=== PATIENT | male | born 1995 | race Caucasian/White ===

== ENCOUNTER 2017-11-18 11:52 | Emergency (ER) | payer OTHER ==
[~2017-11-18] VITALS: Ht 177.8 cm; Wt 69.4 kg
[~2017-11-18 11:52] MED LIST: COL100 PO; NOR10T PO
[2017-11-18 12:05] VITALS: Ht 177.8 cm; Wt 69.4 kg
[2017-11-18 14:24] VITALS: BP 117/57
== END 2017-11-18 14:24 | disposition home or self-care (01) ==
LOC: ED 11:52
DX: S60.511A Abrasion of right hand, initial encounter (principal); X58.XXXA Exposure to other specified factors, initial encounter; Y93.89 Activity, other specified; Y92.89 Other specified places as the place of occurrence of the external cause; Y99.8 Other external cause status

== ENCOUNTER 2019-01-11 13:16 | Emergency (ER) | payer SELFPAY ==
[~2019-01-11] VITALS: Ht 175.3 cm; Wt 66.8 kg
[2019-01-11 13:21] VITALS: Ht 175.3 cm; Wt 66.8 kg
[2019-01-11 13:57] LABS: BASOPHIL % 0.5 % (0-2); PLATELET COUNT 219 x10^3mcL (130-400); RED CELL DISTRIBUTION WIDTH 13.2 % (11.5-14.5)
[2019-01-11 14:15] LABS: microscopic required? NO
[2019-01-11 14:19] LABS: CALCIUM 9.6 mg/dL (8.5-10.1); CARBON DIOXIDE 26.1 mmol/L (21-32); CHLORIDE SERUM 103 mmol/L (98-107); CREATININE SERUM 0.9 mg/dL (0.7-1.3); GFR1 > 60 mL/min; GLUCOSE SERUM 95 mg/dL (74-106); POTASSIUM SERUM 3.7 mmol/L (3.5-5.1); SODIUM SERUM 143 mmol/L (136-145)
[2019-01-11 14:22] LABS: ALBUMIN 4.6 g/dL (3.4-5.0); ALKALINE PHOSPHATASE 89 U/L (46-116); ALT/SGPT 17 U/L (16-63); AST/SGOT 9 U/L (15-37); BILIRUBIN TOTAL 0.6 mg/dL (0.20-1.00); HDL CHOLESTEROL 42 mg/dL (40-60); LIPASE 90 IU/L (73-393); TRIGLYCERIDES 57 mg/dL (<150)
[2019-01-11 14:25] LABS: CHOLESTEROL 104 mg/dL (<200); CHOLESTEROL/HDL RATIO 2.5; TOTAL PROTEIN, SERUM 8.5 g/dL (6.4-8.2)
[2019-01-11 14:25] LABS: urine erythrocyte NEGATIVE (NEGATIVE)
[2019-01-11 14:33] LABS: AMPHETAMINE QUAL UR NONE DETECTED (See below)
[2019-01-11 14:53] LABS: FREE T4 1.21 ng/dL (0.76-1.46); FREE THYROXINE INDEX 3.2 ug/dL (1.4-4.5); T4(THYROXINE) 8.3 ug/dL (4.7-13.3)
[2019-01-11 17:36] VITALS: BP 96/58
[2019-01-11 17:43] LABS: T3 TOTAL 1.14 ng/mL
== END 2019-01-11 18:19 | disposition home or self-care (01) ==
LOC: ED 13:16
PROVIDERS: Specialist
DX: R07.89 Other chest pain (principal); K40.90 Unilateral inguinal hernia, without obstruction or gangrene, not specified as recurrent; F41.9 Anxiety disorder, unspecified; F12.90 Cannabis use, unspecified, uncomplicated; Z87.891 Personal history of nicotine dependence; Z90.89 Acquired absence of other organs
CPT/HCPCS: 83880; 84439; J1885; J2060; J7030; Q0092

== ENCOUNTER 2019-02-10 09:04 | Emergency (ER) | payer MEDICAID ==
[~2019-02-10] VITALS: Ht 180.3 cm; Wt 68.0 kg
[2019-02-10 09:32] VITALS: BP 123/86; Ht 180.3 cm; Wt 68.0 kg
== END 2019-02-10 10:52 | disposition home or self-care (01) ==
LOC: ED 09:04
DX: F41.9 Anxiety disorder, unspecified (principal); Z90.89 Acquired absence of other organs

== ENCOUNTER 2019-04-14 00:37 | Emergency (ER) | payer SELFPAY ==
[~2019-04-14] VITALS: Ht 180.3 cm; Wt 75.3 kg
[2019-04-14 00:46] VITALS: Ht 180.3 cm; Wt 75.3 kg
[2019-04-14 03:13] LABS: CALCIUM 8.9 mg/dL (8.5-10.1); CARBON DIOXIDE 29.6 mmol/L (21-32); CHLORIDE SERUM 106 mmol/L (98-107); CREATININE SERUM 0.7 mg/dL (0.7-1.3); GFR1 > 60 mL/min; GLUCOSE SERUM 96 mg/dL (74-106); POTASSIUM SERUM 3.9 mmol/L (3.5-5.1); SODIUM SERUM 142 mmol/L (136-145)
[2019-04-14 03:17] LABS: ALBUMIN 4.1 g/dL (3.4-5.0); ALKALINE PHOSPHATASE 78 U/L (46-116); ALT/SGPT 19 U/L (16-63); AST/SGOT 10 U/L (15-37); BILIRUBIN TOTAL 0.58 mg/dL (0.20-1.00); TOTAL PROTEIN, SERUM 7.5 g/dL (6.4-8.2)
[2019-04-14 03:19] LABS: BASOPHIL % 0.5 % (0-2); PLATELET COUNT 197 x10^3mcL (130-400); RED CELL DISTRIBUTION WIDTH 13.6 % (11.5-14.5)
[2019-04-14 04:42] VITALS: BP 128/79
== END 2019-04-14 04:42 | disposition home or self-care (01) ==
LOC: ED 00:37
PROVIDERS: Emergency Medicine
DX: F41.9 Anxiety disorder, unspecified (principal); R51 Headache; Z90.89 Acquired absence of other organs
CPT/HCPCS: J2405; J7030

== ENCOUNTER 2020-02-14 21:43 | Emergency (ER) | payer SELFPAY ==
[~2020-02-14] VITALS: Ht 177.8 cm; Wt 71.7 kg
[2020-02-14 22:07] VITALS: Ht 177.8 cm; Wt 71.7 kg
[2020-02-14 23:17] LABS: BASOPHIL % 0.3 % (0-2); PLATELET COUNT 182 x10^3mcL (130-400); RED CELL DISTRIBUTION WIDTH 13.1 % (11.5-14.5)
[2020-02-14 23:21] LABS: CALCIUM 8.9 mg/dL (8.5-10.1); CARBON DIOXIDE 23.8 mmol/L (21-32); CHLORIDE SERUM 101 mmol/L (98-107); CREATININE SERUM 1.1 mg/dL (0.7-1.3); GFR1 > 60 mL/min; GLUCOSE SERUM 112 mg/dL (74-106); POTASSIUM SERUM 3.1 mmol/L (3.5-5.1); SODIUM SERUM 138 mmol/L (136-145)
[2020-02-14 23:25] LABS: ALBUMIN 4.1 g/dL (3.4-5.0); ALKALINE PHOSPHATASE 65 U/L (46-116); ALT/SGPT 22 U/L (16-63); AST/SGOT 22 U/L (15-37); BILIRUBIN TOTAL 0.5 mg/dL (0.20-1.00); TOTAL PROTEIN, SERUM 7.2 g/dL (6.4-8.2)
[2020-02-15 03:05] VITALS: BP 118/67
== END 2020-02-15 03:05 | disposition home or self-care (01) ==
LOC: ED 21:43
PROVIDERS: Emergency Medicine
DX: R42 Dizziness and giddiness (principal); Z90.89 Acquired absence of other organs; F17.210 Nicotine dependence, cigarettes, uncomplicated
CPT/HCPCS: G0480; J7030

== ENCOUNTER 2020-03-20 02:14 | Emergency (ER) | payer SELFPAY ==
[~2020-03-20] VITALS: Ht 177.8 cm; Wt 73.5 kg
[2020-03-20 06:44] VITALS: BP 103/65
== END 2020-03-20 06:44 | disposition home or self-care (01) ==
LOC: ED 02:14
DX: S06.0X0A Concussion without loss of consciousness, initial encounter (principal); S60.211A Contusion of right wrist, initial encounter; Z90.49 Acquired absence of other specified parts of digestive tract; Z98.890 Other specified postprocedural states; Y04.8XXA Assault by other bodily force, initial encounter; Y93.89 Activity, other specified; Y92.89 Other specified places as the place of occurrence of the external cause; Y99.8 Other external cause status
CPT/HCPCS: Q0092; Q0162